=== PATIENT | female | born 1945 | race Caucasian/White ===

== ENCOUNTER 2022-02-05 05:22 | Inpatient (IN) ==
[2022-02-05] MEDS ORDERED: *HR* OxyCODONE Immed Rel 5 MG TABLET PO PRN (11:03)
[2022-02-05] MEDS ORDERED: Ondansetron 4 MG/2 ML VIAL IVP PRN (11:03)
[2022-02-05] MEDS ORDERED: Naloxone 0.4 MG/ML INJ IVP PRN (11:03)
[2022-02-05] MEDS ORDERED: Acetaminophen 325 MG TABLET PO PRN (11:03)
[2022-02-05] MEDS ORDERED: Perflutren Lipid Microsphere 1.3 ML in 0.9 % Sodium Chloride 8.7 ML IVP PRN (12:29)
[2022-02-05] MEDS ORDERED: Ringers Solution, Lactated 1,000 ML IVC ONE (14:06)
[2022-02-05] MEDS ORDERED: Acetaminophen IV 1,000 MG/100 ML BAG IVPB ONE (14:06)
[2022-02-05 15:39] LABS: INR 1.1
[2022-02-05 15:45] LABS: BUN/Creatinine Ratio 22 (6-26); Blood Urea Nitrogen 29 mg/dL (8-23); Calcium 8.4 mg/dL (8.6-10.3); Carbon Dioxide 28 mEq/L (23-29); Chloride 102 mEq/L (98-107); Glucose 174 mg/dL (70-105); Magnesium 1.9 mg/dL (1.6-2.6); Osmolality,Calculated 294 (280-300); Potassium 4.9 mEq/L (3.5-5.1); Sodium 137 mEq/L (136-145); eGFR For African Americans 47 (> 60); eGFR For Non-African Americans 39 (> 60)
[2022-02-05 15:46] LABS: Troponin I < 0.03 ng/mL (< 0.04)
[2022-02-05 15:51] LABS: Basophils % 0.3 %; Hemoglobin 8.9 g/dL (11.5-15.4); Immature Granulocytes % 0.9 % (0-4); Mean Platelet Volume 11.9 fL (9.4-12.4)
[2022-02-05 15:53] LABS: Eosinophils % 0.6 %; Hematocrit 27.8 % (35.3-44.9); Immature Platelets 6.2 % (1.1-6.1); Lymphocytes # 0.7 K/mcL (0.6-4.6); Lymphocytes % 20.5 %; Mean Corpuscular Hemoglobin 28.7 pg (28.0-33.3); Mean Corpuscular Volume 89.7 fL (83.0-100.0); Monocytes # 0.4 K/mcL (0.0-1.3); Monocytes % 11.7 %; Neutrophils # 2.2 K/mcL (1.6-8.9); Red Cell Distribution Width 14.3 % (11.5-14.5); White Blood Count 3.3 K/mcL (4.3-11.1)
[2022-02-05 16:23] LABS: Platelet Count 84 K/mcL (140-400)
[2022-02-05] MEDS: *HR* OxyCODONE Immed Rel 5 MG TABLET PO PRN (17:28)
[2022-02-05] MEDS ORDERED: Dextrose 4 GM Chewable Tablets PO PRN ×2 (18:27)
[2022-02-05] MEDS ORDERED: *HR* Dextrose 50 % in Water (Syg) 50 ML SYRINGE IVP PRN (18:27)
[2022-02-05] MEDS ORDERED: D5% in Water 1,000 ML IVC PRN (18:27)
[2022-02-05] MEDS: Insulin LISPRO 300 UNITS/3 ML VIAL SUBQ SCH ×2 (19:50)
[2022-02-05] MEDS: Ipratropium/Albuterol Neb 3 ML IH SCH (20:32)
[2022-02-05] MEDS: *HR* HYDROcodone/Acet 5/325 mg TABLET PO PRN (21:18)
[2022-02-06] MEDS: *HR* OxyCODONE Immed Rel 5 MG TABLET PO PRN ×2 (03:03→09:37)
[2022-02-06 03:07] LABS: Basophils % 0.3 %; Eosinophils % 0.6 %; Hematocrit 28.7 % (35.3-44.9); Immature Granulocytes % 0.6 % (0-4); Immature Platelets 6.2 % (1.1-6.1); Lymphocytes # 0.6 K/mcL (0.6-4.6); Lymphocytes % 15.7 %; Mean Corpuscular HGB Conc 31.4 g/dL (31.6-35.5); Mean Corpuscular Hemoglobin 28.3 pg (28.0-33.3); Mean Corpuscular Volume 90.3 fL (83.0-100.0); Mean Platelet Volume 11.8 fL (9.4-12.4); Monocytes # 0.4 K/mcL (0.0-1.3); Neutrophils # 2.6 K/mcL (1.6-8.9); Platelet Count 84 K/mcL (140-400); Red Blood Count 3.18 M/mcL (3.82-4.97); Red Cell Distribution Width 14.1 % (11.5-14.5); Segmented Neutrophils % 71.8 %; White Blood Count 3.6 K/mcL (4.3-11.1)
[2022-02-06 03:11] LABS: Estimated Average Glucose 163 mg/dl; Hemoglobin A1C 7.3 %
[2022-02-06 03:23] LABS: BUN/Creatinine Ratio 27 (6-26); Blood Urea Nitrogen 25 mg/dL (8-23); Calcium 8.7 mg/dL (8.6-10.3); Carbon Dioxide 29 mEq/L (23-29); Chloride 102 mEq/L (98-107); Glucose 169 mg/dL (70-105); Osmolality,Calculated 288 (280-300); Potassium 4.7 mEq/L (3.5-5.1); Sodium 135 mEq/L (136-145); eGFR For African Americans > 60 (> 60); eGFR For Non-African Americans 60 (> 60)
[2022-02-06] MEDS: Ipratropium/Albuterol Neb 3 ML IH SCH ×4 (03:59→20:29)
[2022-02-06] MEDS: Insulin LISPRO 300 UNITS/3 ML VIAL SUBQ SCH ×4 (07:24→20:03)
[2022-02-06] MEDS: *HR* HYDROcodone/Acet 5/325 mg TABLET PO PRN ×2 (08:17→19:55)
[2022-02-06] MEDS ORDERED: CeFAZolin Syr 2,000MG/20 ML 2,000 MG/20 ML SYRINGE IVPB ONE (11:37)
[2022-02-06] MEDS ORDERED: Ringers Solution, Lactated 1,000 ML IVC SCH (11:45)
[2022-02-06] MEDS ORDERED: Famotidine 20 MG/2 ML VIAL IVP ONE (11:47)
[2022-02-06] MEDS ORDERED: Acetaminophen IV 1,000 MG/100 ML BAG IVPB ONE (11:48)
[2022-02-06] MEDS ORDERED: Morphine Sulfate 2 MG/ML SYRINGE IVP PRN (12:36)
[2022-02-06] MEDS ORDERED: *HR* Succinylcholine 200 MG/10 ML VIAL IVP ONE (13:06)
[2022-02-06] MEDS ORDERED: *HR* FentaNYL (PF) 100 MCG/2 ML VIAL ONE (13:06)
[2022-02-06] MEDS ORDERED: Lidocaine -MPF 2% 2 ML VIAL ONE (13:06)
[2022-02-06] MEDS ORDERED: *HR* Midazolam HCl 2 MG/2 ML VIAL ONE (13:06)
[2022-02-06] MEDS ORDERED: *HR* Propofol 200 MG/20 ML VIAL IVP ONE (13:06)
[2022-02-06] MEDS ORDERED: Ondansetron 4 MG/2 ML VIAL ONE (13:06)
[2022-02-06] MEDS ORDERED: *HR* OxyCODONE Immed Rel 5 MG TABLET PO PRN (14:38)
[2022-02-06] MEDS: Gabapentin 300 MG CAPSULE PO SCH ×2 (16:25→19:55)
[2022-02-06] MEDS: Apixaban 2.5 MG TABLET PO SCH (19:55)
[2022-02-06] MEDS: CeFAZolin 2 GM/120 ML BAG IVPB SCH (20:10)
[2022-02-07] MEDS: CeFAZolin 2 GM/120 ML BAG IVPB SCH (03:31)
[2022-02-07] MEDS: *HR* HYDROcodone/Acet 5/325 mg TABLET PO PRN (03:31)
[2022-02-07] MEDS: Ipratropium/Albuterol Neb 3 ML IH SCH ×4 (04:43→21:07)
[2022-02-07 05:42] LABS: Mean Corpuscular Volume 91.4 fL (83.0-100.0); Red Cell Distribution Width 14.6 % (11.5-14.5)
[2022-02-07 05:44] LABS: Hematocrit 26.5 % (35.3-44.9); Hemoglobin 8.1 g/dL (11.5-15.4); Immature Platelets 7.3 % (1.1-6.1); Mean Corpuscular HGB Conc 30.6 g/dL (31.6-35.5); Mean Corpuscular Hemoglobin 27.9 pg (28.0-33.3); Mean Platelet Volume 11.6 fL (9.4-12.4); Red Blood Count 2.9 M/mcL (3.82-4.97); White Blood Count 3.9 K/mcL (4.3-11.1)
[2022-02-07 06:02] LABS: BUN/Creatinine Ratio 18 (6-26); Blood Urea Nitrogen 14 mg/dL (8-23); Calcium 8.3 mg/dL (8.6-10.3); Carbon Dioxide 29 mEq/L (23-29); Chloride 104 mEq/L (98-107); Glucose 121 mg/dL (70-105); Osmolality,Calculated 288 (280-300); Potassium 4.3 mEq/L (3.5-5.1); Sodium 138 mEq/L (136-145); eGFR For African Americans > 60 (> 60); eGFR For Non-African Americans > 60 (> 60)
[2022-02-07] MEDS: Acetaminophen 325 MG TABLET PO PRN ×2 (07:37→11:40)
[2022-02-07] MEDS: Apixaban 2.5 MG TABLET PO SCH ×2 (07:39→20:09)
[2022-02-07] MEDS: Insulin LISPRO 300 UNITS/3 ML VIAL SUBQ SCH ×3 (07:44→20:00)
[2022-02-07] MEDS: Gabapentin 300 MG CAPSULE PO SCH ×3 (09:27→20:09)
[2022-02-08] MEDS: Ipratropium/Albuterol Neb 3 ML IH SCH ×4 (05:09→19:49)
[2022-02-08 06:25] LABS: Hematocrit 24.6 % (35.3-44.9); Hemoglobin 7.7 g/dL (11.5-15.4)
[2022-02-08] MEDS: Apixaban 2.5 MG TABLET PO SCH ×2 (08:13→21:28)
[2022-02-08] MEDS: Gabapentin 300 MG CAPSULE PO SCH ×3 (08:13→21:28)
[2022-02-08] MEDS: Insulin LISPRO 300 UNITS/3 ML VIAL SUBQ SCH ×4 (08:15→21:19)
[2022-02-09 00:43] LABS: Bilirubin,Urine Negative (Negative); Blood,Urine Negative (Negative); Clarity,Urine Clear (Clear); Color,Urine Light-Yellow (Yellow); Glucose,Urine (UA) Normal (Normal); Ketones,Urine Negative (Negative); Leukocyte Esterase,Urine Negative (Negative); Nitrite,Urine Negative (Negative); Protein,Urine Trace mg/dL (Neg-Trace); Specific Gravity,Urine 1.011 (1.010-1.025); Urobilinogen,Urine Normal (Normal)
[2022-02-09] MEDS: Ipratropium/Albuterol Neb 3 ML IH SCH ×3 (02:55→15:39)
[2022-02-09] MEDS: Insulin LISPRO 300 UNITS/3 ML VIAL SUBQ SCH (08:22)
[2022-02-09] MEDS: Gabapentin 300 MG CAPSULE PO SCH ×2 (08:38→14:59)
[2022-02-09] MEDS: Apixaban 2.5 MG TABLET PO SCH (08:39)
[2022-02-09] MEDS: *HR* HYDROcodone/Acet 5/325 mg TABLET PO PRN (08:39)
[2022-02-09 08:52] LABS: Hematocrit 25.9 % (35.3-44.9); Mean Corpuscular HGB Conc 30.9 g/dL (31.6-35.5); Mean Corpuscular Volume 90.6 fL (83.0-100.0); Mean Platelet Volume 11.1 fL (9.4-12.4); Red Blood Count 2.86 M/mcL (3.82-4.97); Red Cell Distribution Width 14.8 % (11.5-14.5); White Blood Count 3.1 K/mcL (4.3-11.1)
[2022-02-09 09:09] LABS: BUN/Creatinine Ratio 15 (6-26); Blood Urea Nitrogen 10 mg/dL (8-23); Calcium 8.4 mg/dL (8.6-10.3); Carbon Dioxide 25 mEq/L (23-29); Chloride 102 mEq/L (98-107); Glucose 154 mg/dL (70-105); Osmolality,Calculated 280 (280-300); Potassium 4.3 mEq/L (3.5-5.1); Sodium 134 mEq/L (136-145); eGFR For African Americans > 60 (> 60); eGFR For Non-African Americans > 60 (> 60)
[2022-02-09 13:14] LABS: Influenza A PCR Negative (Negative); Influenza B PCR Negative (Negative); Resp. Syncytial Virus PCR Negative (Negative)
[2022-02-09 13:27] LABS: SARS-CoV-2 by PCR (In House) Negative (Negative)
[2022-02-09 15:40] VITALS: BP 125/65; PULSE 97; TEMP 97.8; O2SAT 95
== END 2022-02-09 16:04 | DRG 481 ==
LOC: 4WAOSI → SUATTDRO 10:32
PROVIDERS: ADMIT Family Medicine; ATTEND Family Medicine